=== PATIENT | male | born 1950 | race Caucasian/White ===

== ENCOUNTER 2025-04-17 12:07 | Outpatient (CLI) | payer MEDICARE, SELFPAY ==
--- NOTE | ~2025-04-17 | PE_ITS ---
EXAMINATION: PET_PETPSMAST_PT DATE: 04/17/2025 14:55 INDICATION: Prostate cancer TECHNIQUE: 5.804 mCi of Illucix Ga-[id number]) was administered i.v. Low dose computed tomography (CT) images were acquired from the base of the brain to the base of the brain to the proximal thighs for attenuation correction and anatomic localization. Positron emission tomography (PET) images were acquired in the same distribution beginning 78 minutes after injection. Images including fused PET/CT images were reconstructed in axial, coronal, and sagittal planes. Automated exposure control technique was employed. The dose-length product was 844.50mGy-cm. COMPARISON: None FINDINGS: Head/neck: Typical pattern of symmetric physiologic increased activity in the lacrimal, parotid and submandibular glands as well as along the mucosa of the nasal and oral cavities, pharynx and hypopharynx. No pathologically enlarged cervical lymphadenopathy or suspicious foci of increased uptake in the visualized head or neck. Chest: Mild emphysema and mild biapical pleural-parenchymal scarring. No suspicious pulmonary nodules or pleural effusion. Heart size is normal. No pericardial effusion. Calcified right hilar lymph nodes consistent with old granulomatous disease. No pathologically enlarged or PSMA avid thoracic lymphadenopathy. Abdomen/pelvis/proximal thighs: Physiologic renal accumulation and excretion of activity in the kidneys, bladder and along portions of ureters. Prostatomegaly measuring 5.2 x 3.9 cm with small region of increased uptake at the left and right peripheral zones with maximal SUV values of 6.8 on the right and 6.5 on the left consistent with primary prostate cancer. Normal degree and slightly heterogenous pattern of increased uptake throughout the liver and spleen without radiologic correlate or dominant PSMA avid lesion. The gallbladder, pancreas and bilateral adrenal glands are normal. Moderate uptake scattered throughout the bowels with typical duodenal and proximal jejunal predominance and without radiologic correlate, also likely physiologic. Mild to moderate sigmoid diverticulosis without adjacent from trace stranding to suggest acute appendicitis. Normal appendix. No other abnormal foci of increased uptake or pathologically enlarged lymphadenopathy in the abdomen, pelvis or proximal thighs. 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 Severe lumbar spondylosis. No suspicious lytic, blastic or abnormally PSMA avid bone lesions. IMPRESSION: 1. 2 regions of increased uptake at the left and right peripheral zones of the enlarged prostate consistent with primary prostate cancer. No evident metastatic disease. Reviewed, dictated and finalized at location A. IMPRESSION: 1. 2 regions of increased uptake at the left and right peripheral zones of the enlarged prostate consistent with primary prostate cancer. No evident metastati c disease.
--- OUTSIDE RECORDS SUMMARY | 2025-04-17 12:12 | XMS_ITS | Clinical Summary ---
Author Organization [facility] Address [address] [place] [address] Care Team Providers Care Plant Protection Guard Name Role Phone Aly Orourke [employer] Primary Care Provider [phone] Allergies No known active allergies Medications escitalopram (LEXAPRO) 10 mg tabletIndicatio ns:Anxiety with Depression Take 1 tablet (10 mg total) by mouth every morning Active aspirin 81 mg enteric coated tabletIndicatio ns:healthy heart Take 1 tablet (81 mg total) by mouth every morning Active traZODone (DESYREL) 50 mg tabletIndicatio ns:insomnia associated with depression Take 1 tablet (50 mg total) by mouth nightly 0 Active ibuprofen (ibuprofen) 200 mg tab/cap Take 2 tablet/capsule (400 mg total) by mouth every 6 (six) hours as needed for pain Active losartan (COZAAR) 25 mg tablet 3 Active amLODIPine (NORVASC) 5 mg tablet Take 1 tablet (5 mg total) by mouth daily 3 Active metoprolol tartrate (LOPRESSOR) 25 mg immediate release tablet Take 1 tablet (25 mg total) by mouth 2 (two) times a day 3 Active rosuvastatin (CRESTOR) 10 mg tablet Take 1 tablet (10 mg total) by mouth daily 3 Active latanoprost (XALATAN) 0.005 % ophthalmic solution Administer 1 drop into the left eye nightly 7.5 mL 3 4 Active brimonidine (ALPHAGAN) 0.2 % ophthalmic solution Administer 1 drop into the left eye 2 (two) times a day 15 mL 11 4 Active dorzolamide-lois oloL (COSOPT) 22.3-6.8 mg/mL ophthalmic solution INSTILL 1 DROP INTO LEFT EYE TWICE DAILY 10 mL 8 5 Active Active Problems Problem Noted Date Diagnosed Date Postop check 03/12/2020 Assessment & Plan (05/07/2020 10:49 AM CDT): POM2 status post (s/p) cataract extraction (CE)/IOL/KDB left eye (OS) Vision excellent with refraction. IOP improved on dorzolamide/timolol (Cosopt), though still on once daily Pred Forte. Small floaters haven't worsened, seem to be getting a bit better Continue present management on dorzolamide/timolol (Cosopt) BID Discontinue Pred Forte Given MRx F/U 3 months with OCT optic nerve (ON) Assessment & Plan (04/02/2020 1:41 PM CDT): POW4 status post (s/p) cataract extraction (CE)/IOL/KDB left eye (OS) Vision excellent with refraction. IOP up a bit, though still on steroid and using dorzolamide/timolol (Cosopt) only once daily. Few floaters mentioned last time haven't worsened, seem to be getting a bit better Restart dorzolamide/timolol (Cosopt) at BID pred forte (PF) q day x 1 more week with occas cell Plan for follow-up in 1 month for repeat MRx Assessment & Plan (03/21/2020 2:16 PM CDT): POW2.5 status post (s/p) cataract extraction (CE)/IOL/KDB left eye (OS) Astigmatism related visual complaints intraocular pressure (IOP) excellent Reassured pt Cont pred forte (PF) taper F/U as scheduled 04/02 Assessment & Plan (03/12/2020 1:44 PM CDT): POW1 S/P CE/IOL/KDB OS Doing well - Start Pred Forte taper - Stop ofloxacin - Can continue on Cosopt BID OS - Plan for follow-up in 3 weeks with MRx Choroidal lesion 02/13/2020 Assessment & Plan (12/05/2024 8:43 AM CDT): Stable exam Optos confirmation Assessment & Plan (08/08/2024 8:35 AM FAX MACHINE OPERATOR): due for DFE with retina - last seen 08/2022 - recommend follow up Assessment & Plan (02/08/2024 12:04 PM CDT): Stable today on Optos CTM Assessment & Plan (08/03/2023 12:03 PM FAX MACHINE OPERATOR): Stable today on DFE. No change c/w photos Optos next visit. Assessment & Plan (01/27/2023 10:26 PM CDT): F/U with Dr. Garnica annually Assessment & Plan (09/01/2022 10:07 AM FAX MACHINE OPERATOR): Appears unchanged, we compared photographs from today to January of 2020. The lesion left eye appears unchanged, we offered ultrasound however considering stability and color photographs he simply wish for observation. I think this is quite reasonable. I have asked her return to see us in roughly a year's time. Assessment & Plan (09/01/2022 8:36 AM FAX MACHINE OPERATOR): Seeing Dr. Garnica today Assessment & Plan (04/14/2022 8:24 AM CDT): F/U with Dr. Garnica in August as scheduled Assessment & Plan (09/02/2021 11:03 AM FAX MACHINE OPERATOR): Continues to remain stable. Recommend continued observation, will re-evaluate in 1 year. Assessment & Plan (09/02/2021 9:50 AM FAX MACHINE OPERATOR): F/U Dr. Garnica Assessment & Plan (04/08/2021 9:59 AM CDT): Follows with Dr. Garnica- undergoing observation Has follow up scheduled Assessment & Plan (12/03/2020 11:39 AM CDT): Remains essentially unchanged, recommend observation. We will re-evaluate roughly 9 months time. Assessment & Plan (12/03/2020 10:46 AM CDT): F/U with Dr. Garnica today Assessment & Plan (06/02/2020 11:26 AM CDT): Pigmented lesion with some overlying orange pigment but also has drusen, is thin, and has been stable to photo review from 2014. Consider observation today, with re-evaluate in roughly 6 months time. Assessment & Plan (05/07/2020 10:49 AM CDT): Appt with Dr. Garnica 06/02 Assessment & Plan (02/21/2020 11:23 AM CDT): Pigmented lesion with some overlying orange pigment however it is quite thin on ultrasound. Considering in size of recommend observation today, will re-evaluate in roughly 3 months time. Should the lesion change in size or shape we may reconsider the need for therapy. 02/21/20 - I reviewed the situation with Dr. Faria yesterday and asked that she hold on surgeries until we can assure the lesion appears unchanged, the following day she was able to find some old notes were I saw the patient in the past. I was able to pull up old photographs from 2014 and the lesion appears essentially unchanged. Additionally there is an old ultrasound from 2014 which is remarkably unchanged as well. Considering this new information I think it be safe for him to have surgical procedures if necessary. I would still like to follow him to assure the lesion remains unchanged. 11:22am- I contacted the patient by phone and let him know the Dr. Faria was able to help us find old records and that the old records reveal that the lesion has essentially remained unchanged. I told him that this is some good news and we can simply follow him. He appreciated greatly the phone call. Assessment & Plan (02/14/2020 10:21 PM CDT): Not documented on recent fundus exams Optos photo today for documentation and review with Dr. Garnica- Noted orange pigment at inferior area of lesion- suspicious element Will arrange for exam, documentation of thickness, etc. Delay surgery until eval performed. 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- stable and comfortable off gtts Assessment & Plan (08/03/2023 11:56 AM FAX MACHINE OPERATOR): status post Trab right eye Chronic hypotony- stable and comfortable off gtts Assessment & Plan (01/27/2023 10:25 PM CDT): Chronic hypotony- stable and comfortable on no gtt status post (s/p) Trab right eye (OD) Assessment & Plan (09/01/2022 8:33 AM FAX MACHINE OPERATOR): Chronic numerical hypotony s/p Trab -Stable on no gtts Assessment & Plan (04/14/2022 8:09 AM CDT): Chronic hypotony s/p Trab -Stable on no gtts Assessment & Plan (09/02/2021 9:50 AM FAX MACHINE OPERATOR): Chronic hypotony- stable and comfortable on no gtt status post (s/p) Trab right eye (OD) Assessment & Plan (04/08/2021 10:08 AM CDT): Has been chronically hypotonous- stable and comfortable on no gtt Assessment & Plan (12/03/2020 10:46 AM CDT): Chronic hypotony- stable, comfortable Assessment & Plan (07/30/2020 1:12 PM FAX MACHINE OPERATOR): Chronic hypotony status post (s/p) trab Stable Assessment & Plan (02/13/2020 11:00 PM CDT): Chronic hypotony- stable, comfortable Assessment & Plan (09/19/2019 9:15 AM FAX MACHINE OPERATOR): Hypotony without complication status post (s/p) trab IOP and vision stable Assessment & Plan (05/09/2019 3:57 PM CDT): Hypotony without complication status post (s/p) trab No progression Assessment & Plan (02/28/2019 10:13 PM CDT): Chronic hypotony status post (s/p) trab with stable vision Assessment & Plan (09/27/2018 11:17 AM FAX MACHINE OPERATOR): Chronic hypotony- stable Assessment & Plan (06/14/2018 11:06 AM CDT): Chronic hypotony- stable Assessment & Plan (03/15/2018 11:20 AM CDT): status post (s/p) Trab with hypotony, visual acuity (VA) stable Primary open angle glaucoma (POAG) of left eye, moderate stage 03/14/2018 Assessment & Plan (12/05/2024 8:42 AM CDT): S/p CE/IOL/KDB OS IOP remains low teens on Cosopt BID OS, Travatan qhs left eye (OS), brim RTC 6 mo with Deleon visual field (HVF) 24-2 left eye (OS) only, OCT Assessment & Plan (08/08/2024 9:07 AM FAX MACHINE OPERATOR): Intraocular pressure (IOP) 14 on 3 classes Deleon visual field (HVF) stable over last few years, but marked progression [id number] with intraocular pressure (IOP) upper teens to 20 Thin CCT Target low- monocular pt Add Brim left eye (OS) bid F/U 4 months- DFE Assessment & Plan (02/09/2024 9:57 PM CDT): S/p CE/IOL/KDB OS IOP remains low teens on Cosopt BID OS, Travatan qhs OS: - CPM - RTC 6 months for Deleon visual field (HVF) 24-2; Assessment & Plan (08/03/2023 12:03 PM FAX MACHINE OPERATOR): S/p CE/IOL/KDB OS IOP remains low teens on Cosopt BID OS, Travatan qhs OS HVF today difficult to interpret due to high fixation losses today and high false positives last time. Stable DFE today. Plan: - CPM - RTC 6 months for OCT, Optos Assessment & Plan (01/27/2023 10:25 PM CDT): S/p CE/IOL/KDB OS IOP remains low teens on Cosopt BID OS, Travatan qhs OS OCT RNFL stable RTC 6 mo with Deleon visual field (HVF) 24-2 left eye (OS) only, DFE Assessment & Plan (09/01/2022 9:04 AM FAX MACHINE OPERATOR): Hx CE/IOL/KDB OS IOP remains low-teens on Cosopt BID OS, Travatan qhs OS Prior OCT stable compared to 2019 HVF 24-2 OS today stable compared to 08/2021 but with high rate of false positive and False negatives RTC 5 months with OCT RNFL Assessment & Plan (04/14/2022 8:23 AM CDT): Hx CE/IOL/KDB OS IOP remains 15 on Cosopt BID OS, Travatan qhs OS OCT today slightly worse from last, but compared to 2019 is stable RTC 4-5 mo with HVF 24-[address] Garnica also that day Assessment & Plan (09/02/2021 9:49 AM FAX MACHINE OPERATOR): S/p CE/IOL/KDB OS IOP remains 14 on Cosopt BID OS, Travatan qhs OS Deleon visual field (HVF) with fluctuations- no change c/w 2015 RTC 5 mo with OCT Assessment & Plan (04/08/2021 10:41 AM CDT): S/p CE/IOL/KDB OS IOP 14 on Cosopt BID OS, Travatan qhs OS OCT ON with stable thinning with fluctuations- no change c/w 2015 IOP improved today on 3 classes RTC 4-5 mo with HVF 24-2 OS Assessment & Plan (12/03/2020 10:46 AM CDT): status post (s/p) cataract extraction (CE)/IOL/KDB left eye (OS) intraocular pressure (IOP) improved on Cosopt, but higher than target (15) Add back Travatan left eye (OS) q day F/U 4 months with OCT optic nerve (ON) Assessment & Plan (07/30/2020 1:11 PM FAX MACHINE OPERATOR): status post (s/p) cataract extraction (CE)/IOL/KDB left eye (OS) intraocular pressure (IOP) improved on Cosopt, but higher today Pt not certain that he took the drop this AM as better last visit CPM for now F/U 4 months with Deleon visual field (HVF) 24-2 Assessment & Plan (02/13/2020 10:59 PM CDT): visual field (VF) progression and nerve fiber layer (NFL) loss over past few years with intraocular pressure (IOP) upper teens on maximal meds Although he may need more definitive procedure in future, begin with KDB or Hydrus. Discussed R/B/A with pt and he agrees to proceed Assessment & Plan (09/20/2019 11:49 AM FAX MACHINE OPERATOR): intraocular pressure (IOP) slightly up from last visit 20 today on recheck Given Deleon visual field (HVF) progression, needs lower IOP Notes good compliance with medications Recommend phaco/goniotomy left eye (OS) Discussed R/B/A F/U with Deleon visual field (HVF), Ascan and DFE in November and then to have surgery soon thereafter. Assessment & Plan (05/09/2019 3:57 PM CDT): intraocular pressure (IOP) stable- sl improved with PM dose of brimonidine OCT stable F/U 4 months - Defers surgery for now. Monitor closely Assessment & Plan (02/28/2019 10:13 PM CDT): intraocular pressure (IOP) borderline on 3 classes Will increase brimonidine to tid left eye (OS) F/U 2-3 months with OCT and DFE Low threshold to recommend surgery- discussed with pt Assessment & Plan (09/27/2018 11:17 AM FAX MACHINE OPERATOR): - on 3 classes OS - IOP borderline - OCT RNFL stable - CPM OS RTC 5M for IOP and HVF Assessment & Plan (06/14/2018 11:08 AM CDT): intraocular pressure (IOP) improved today ? Fluctuations. Prefer to continue Vyzulta with excellent intraocular pressure (IOP) F/U 4-5 months- OCT optic nerve (ON) OS Assessment & Plan (03/15/2018 11:20 AM CDT): Will change back to Travatan from Vyzulta due to cost / change to Medicare Part D. Concerned about visual field (VF) progression (although better than 2017 visual field (VF)) F/U 3 months- intraocular pressure (IOP) check Filtering (vitreous) bleb after glaucoma surgery status 03/14/2018 S/P laser trabeculoplasty of eye 01/05/2017 Pseudophakia of right eye 07/15/2015 Assessment & Plan (09/19/2019 9:14 AM FAX MACHINE OPERATOR): Stable Resolved Problems Problem Noted Date Diagnosed Date Resolved Date Primary open angle glaucoma of left eye, moderate stage 02/14/2020 09/02/2021 Overview (02/14/2020): Added automatically from request for surgery [id number] Nuclear sclerotic cataract of left eye 03/14/2018 03/05/2020 Assessment & Plan (02/13/2020 11:00 PM CDT): Increased glare symptoms- BAT 20/30 Target plano- discussed R/B/A Assessment & Plan (09/20/2019 11:50 AM FAX MACHINE OPERATOR): BAT 20/30 Rec cataract extraction (CE)/IOL with MIGS, some glare symptoms Assessment & Plan (05/09/2019 3:57 PM CDT): Not VS- observe Check BAT next visit Assessment & Plan (02/28/2019 10:13 PM CDT): Not VS- observe Assessment & Plan (09/27/2018 9:33 PM FAX MACHINE OPERATOR): Not visually significant Assessment & Plan (03/15/2018 11:21 AM CDT): Not visually significant Surgical History Surgery Date Site/Laterality Comments CATARACT EXTRACTION W/ INTRA OCULAR LENS IMPLANT Right TRABECULOPLASTY 08/22/2001 - 08/21/2002 Right Medical History Medical History Date Comments Cataract Glaucoma Glaucoma Depression Family History Medical History Relation Name Comments Heart disease Brother Glaucoma Mother Relation Name Status Comments Brother (Age 76 ) Father Mother Social History Tobacco Use Types Packs/Day Years Used Date Smoking Tobacco: Former Cigarettes Q uit: 2004 Smokeless Tobacco: Never Alcohol Use Standard Drinks/Week Comments Yes 25 (1 standard drink = 0.6 oz pu re alcohol) 3-4 beers per day Sex and Gender Information Value Date Recorded Sex Assigned at Not on file Legal Sex Male 2:25 AM FAX MACHINE OPERATOR Gender Identity Not on file Sexual Orientation Not on file Obstetrics History Last Filed Vital Signs Vital Sign Reading Time Taken Comments Blood Pressure 155/65 03/04/2020 12:30 PM CDT Pulse 55 03/04/2020 12:30 PM CDT Temperature 36.2 C (97.2 F) 03/04/2020 12:11 PM CDT Respiratory Rate 12 03/04/2020 12:30 PM CDT Oxygen Saturation 94% 03/04/2020 12:30 PM CDT Inhaled Oxygen Concentration - - Weight 72.6 kg (160 lb) 02/19/2020 3:35 PM CDT Height 177.8 cm (5' 10) 02/19/2020 3:35 PM CDT Body Mass Index 22.96 02/19/2020 3:35 PM CDT Plan of Treatment Health Maintenance Due Date Last Done Comments Depression Screening 1950 Hepatitis C Screening 1950 DTaP/Tdap/Td Vaccine (1 - Tdap) 1959 Hepatitis B Screening 1966 Zoster Vaccine (1 of 2) 1998 Well Visit 65+ 2013 Fall Risk Assessment 03/04/2021 03/04/2020 Pneumococcal vaccine 65+ (2 of 2 - PCV) 09/20/2023 09/20/2022 Covid-19 Vaccine (4 - 2023-2 5 season) 2024 2021, 12/11/2020, 11/13/2020 Influenza Vaccine (#1) 2025 , 06/10/2020, 06/10/2020, Additional history exists Abdominal Aortic Aneurysm (A AA) Screen Completed 09/08/2021 Medical Devices Implanted Type Area Lyft Driver Device Identifier Shelf Expiration Date Model / Serial / Lot [employer] [id number] Tecnis Tecnis Itec Protec Tri-Fix 6mm 13mm 1 Piece Anterior - [id number] - [id number] Implanted:Qty: 1 on 03/04/2020 by Nilam Faria MD at [facility] Lens Left: Eye [employer] [id number] 08/30/2022 [id number] / [id number] / Insurance [facility] MEDICARE ADVANTAGE [employer]ET[employer] MEDICARE GOLD Care Teams Plant Protection Guard Relationship Specialty Start Date End Date Aly Orourke NP PCP - General 12/29/16
== END 2025-04-17 12:08 | disposition home or self-care (01) ==
PROVIDERS: PCP Pediatrics; Visit Provider Urology
DX: C61 Malignant neoplasm of prostate (principal)
CPT/HCPCS: 78815; A9596